=== PATIENT | male | born 1970 | race Caucasian/White ===

== ENCOUNTER → 2016-06-01 | Outpatient (CLI) | payer BC, OTHER ==
[~2016-06-01] VITALS: Ht 177.8 cm; Wt 97.5 kg
[~2016-06-01] MED LIST: APAP500 PO; EXCEDRIN MIGRA1 EAC1 PO; HYDROCODON-ACE1 EAC7 PO; IBUPROFEN 400400 M1 PO; NAPROSYN500 MG PO; ROBAXIN 750 MG750 M1 PO; TRAMADOL 50 MG50 MG PO
--- NOTE | ~2016-06-01 | HPC ---
[facility] [place] [address] PAIN MANAGEMENT CONSULTATION Name: ILA WHYTE Room #: REG [place] Parr#: [id number] Admission: 06/01/16 Attend Phys: Salvador Martins DO Discharge: Date of : 70 Report #: [id number] THIS REPORT FOR: //name// CC: Laura Martins DATE OF SERVICE: 06/01/2016 The patient is a very pleasant 45-year-old gentleman previously seen in the pain clinic for symptomatic lumbar radiculopathy. He has fairly dramatic spinal stenosis, canal congenitally narrowed to 0.38 mm at L4-L5 causing severe stenosis. Had had a single lumbar epidural injection with ongoing relief at last visit (05/11/2016). Returns to pain clinic today. He notes the radicular pain is gone, he has significant loss of right plantarflexion, unable to stand on his right toes. PHYSICAL EXAMINATION: Gait abnormality is noted. Patellar reflex is absent on the left, 2/4 on the right. Straight leg raise is positive bilaterally, right greater than left. Achilles reflex is absent. Again, right plantar extension strength is about 2-3/5, all else is 4/5 to objective testing including left-sided strength. ASSESSMENT: Symptomatic lumbar radiculopathy secondary to spinal stenosis with critical stenosis and ongoing weakness. RECOMMENDATIONS: We will refer to Neurosurgery for consideration for definitive intervention. Given ongoing weakness, we have elected to repeat an epidural injection today, we will try a superior approach at L3-L4 today. Given ongoing weakness if this does not significantly sophia following the procedure today, we will have patient follow up with Neurosurgery. Again, last injection has been 34 days ago. ASSESSMENT: Symptomatic lumbar radiculopathy secondary to spinal stenosis. PROCEDURE: Lumbar epidural injection under fluoroscopy. PROCEDURE NOTE: After both written and informed consent to include risk of spinal cord damage, increased pain, weakness and dural puncture, the patient was taken to the fluoroscopy suite, placed in the prone position. After sterile prep and drape, a skin wheal with lidocaine was raised. A 22-gauge epidural Tuohy needle was inserted in the midline at L3-L4 with good loss to resistance. Negative aspiration for cerebrospinal fluid or blood was noted. Then 1 mL of Omnipaque under biplanar fluoroscopy showed good spread within the epidural space. This was followed with 80 mg of triamcinolone plus 1 mL of 1.5% [address] [address] PAIN MANAGEMENT CONSULTATION Name: ILA WHYTE Room #: REG CLI Keshav#: [id number] Admission: 06/01/16 Attend Phys: Salvador Martins DO Discharge: Date of : 70 Report #: [id number] preservative-free Xylocaine, 0.5 mL Xylocaine was then injected to flush the needle; it was removed. The patient was monitored for an appropriate period of time and discharged in good and stable condition. <ELECTRONICALLY SIGNED> By: Salvador Martins DO 06/07/16 [id number] [id number] Salvador Martins DO /nt
[2016-06-01 10:26] VITALS: BP 123/78
== END | disposition home or self-care (01) ==
LOC: PAIN 07:10
DX: M48.06 Spinal stenosis, lumbar region (principal); G89.29 Other chronic pain

== ENCOUNTER → 2016-06-22 | Outpatient (CLI) | payer BC, OTHER ==
[~2016-06-22] VITALS: Ht 177.8 cm; Wt 95.4 kg
--- NOTE | ~2016-06-22 | HPC ---
[facility] [place] [address] PAIN MANAGEMENT CONSULTATION Name: ILA WHYTE Room #: REG [facility] [id number] Admission: 06/22/16 Attend Phys: Kevin Araya MD Discharge: Date of : 70 Report #: [id number] THIS REPORT FOR: //name// CC: Kevin Messer HISTORY OF PRESENT ILLNESS: The patient is a very pleasant 45-year-old gentleman originally seen in consultation 04/27/2016, diagnosed with symptomatic lumbar radiculopathy secondary to fairly dramatic spinal stenosis down to 0.38 cm at L4-L5. This is a fairly focal defect, L5-S1 is 0.83 cm and L3-L4 is fairly unremarkable. The patient has degenerative changes with posterior spurring and moderate disk bulging with a small extrusion to the left lateral recess. The patient has had single lumbar epidural injection on consultation on 04/27/2016 with significant incremental improvement of baseline pain. Injection was repeated 06/01/2016 though initial injection was below, L5-S1, second injection was above L3-L4. The patient returns to the pain clinic today noting dramatic improvement in pain, notes his pain as 1 on a 0-10 visual analog scale. Still, however, has some paresthesia and is losing some strength to plantar flexion. Has nominal pain in the right SI and the right gluteal area, seems to be worse in the morning or after sitting for a prolonged period of time. Denies bowel or bladder continence changes, but again, primary concern is the difficulty walking on his toes, modest loss of plantar flexion, right greater than left. PHYSICAL EXAMINATION: Shows a 45-year-old gentleman, BMI is 30.2 kilograms per meter squared. Vital signs are stable as noted in the EMR. Does not use tobacco products. Rises from chair using armrest. Gait is actually fairly tandem, but again cannot walk on his toes. There appears a little more difficulty in the right than the left. He is able walk on his heels. Objectively does have some plantarflexion strength about 3/4 on the left, 2-3/4 on the right. Dorsiflexion is good at 4/5, lower extremity extension and flexion, hip flexion is 4-5/5. Straight leg raise is negative. Patellar and Achilles reflexes appear to be preserved. Again, MRI finding is alluded to above. ASSESSMENT: Symptomatic lumbar radiculopathy secondary to fairly significant spinal stenosis, pain symptoms generally resolved. The patient is to continuing to take Naprosyn 500 mg b.i.d., has not used tramadol nor even Tylenol for pain in the past week or so. RECOMMENDATIONS: The patient is getting a followup MRI today with the change in symptoms (diminution of flexion strength). He has a followup appointment with Dr. Kevin Araya. I told him we will be happy to see him as needed for exacerbation of pain symptoms presently; however, he certainly does not warrant interventional therapy, though strongly encouraged to follow up with Dr. Araya. [address] [address] PAIN MANAGEMENT CONSULTATION Name: ILA WHYTE Room #: REG CINTHYA Parr#: [id number] Admission: 06/22/16 Attend Phys: Kevin Araya MD Discharge: Date of : 70 Report #: [id number] I suspect he may require a minimally invasive mcrodecompression at L4-L5. Thank you for allowing me to participate in this patient's care. I am happy to report that presently he really does not warrant interventional therapy. I suggested to drop Naprosyn from 500 mg b.i.d. to 1 a day for the remainder of his prescription (given 60 tablets about 2 weeks ago). If he notes a change in his symptoms, he can go back to b.i.d. <ELECTRONICALLY SIGNED> By: Salvador Martins DO 06/26/16 1228 [id number] [id number] Salvador Martins DO /nt
[2016-06-22 10:00] VITALS: BP 128/87
== END ==
LOC: PAIN 07:08 → RAD 07:08 → MRI 07:08 → PAIN 08:08
DX: M25.78 Osteophyte, vertebrae (principal); M47.816 Spondylosis without myelopathy or radiculopathy, lumbar region; M54.5 Low back pain